=== PATIENT | female | born 1985 | race Caucasian/White ===

== ENCOUNTER 2025-06-25 23:57 | Emergency (ER) | payer OTHER, SELFPAY ==
[2025-06-26 00:04] VITALS: BP 119/69
--- NOTE | 2025-06-26 02:30 | ED.GENMED ---
History of Present Illness
General
Chief Complaint: Breathing Problem
Source: patient
Exam Limitations: none
Time Seen by Provider: 06/26/25 00:30
Nursing documentation reviewed up to this point in time: agreed with
History of Present Illness
History of Present Illness:
see MDM
Past History
Past History
ED Past Medical History: GERD
ED Past Surgical History:
Social History
Tobacco: Smoker
Alcohol: None
Drug: None
Personal: Single
Living: with family
Employment: Employed
Family History
Family History: Other
Review of Systems
Review of Systems
Allergies reviewed?: Yes
All Other Systems: Not applicable
Phy Exam
Physical Exam
Physical Exam:
GENERAL: Alert , in no apparent distress, patient was initially hunched over in the bed because it felt better that way but was able to stand up or sit up
EYE: pupils equal and reactive
NECK: Supple
ENT: o/p clr, mmm.
CARDIAC: Regular rate and rhythm, no tachycardia
LUNGS: Clear breath sounds bilaterally, no acute respiratory distress, no wheezes/rales/rhonchi
ABDOMEN: Soft, flat, nondistended without focal tenderness, no r/g, no cvat, normal bowel sounds
NEUROLOGICAL: Alert and oriented, no focal neuro deficits
SKIN: Warm and dry, skin intact.
MUSCULOSKELETAL: No edema, well perfused. neg robert's sign
PSYCH: Normal and appropriate interaction.
Course
Orders/Labs/Results
Orders:
Orders
06/26/25 00:41
Electrocardiogram (*1) Urgent
Reason for Study: Shortness of Breath
Vital Signs
Initial and Last Documented VS:
Initial Vital Signs
Temp Pulse Resp BP Pulse Ox
36.7 C 84 16 119/69 100
06/26/25 00:04 06/26/25 00:04 06/26/25 00:04 06/26/25 00:04 06/26/25 00:04
Last Documented Vital Signs
Temp Pulse Resp BP Pulse Ox
36.7 C 84 16 119/69 100
06/26/25 00:04 06/26/25 00:04 06/26/25 00:04 06/26/25 00:04 06/26/25 00:04
MDM/Problems Addressed
Differential Diagnosis Includes:
See MDM
MDM/Problems Addressed:
Note:
CHIEF COMPLAINT(S)
Severe pain on the side exacerbated by deep breathing.
HISTORY OF PRESENT ILLNESS
The patient is a 40-year-old female who presents with sudden onset severe pain 1 hour ago while smoking cigarette starting from her right upper back and traveling down the rigth side of her back, described as worsening with deep breath. The pain
improves with a hunched posture but worsens when attempting to stand upright.
The patient denies recent coughing or any illness. She reports using a marijuana vape regularly and smoked cigarettes for an undisclosed duration. She has a history of similar pain post- section, which she associated with trapped gas.
The pain was so severe at one point that she found herself crumpled on the kitchen floor, unable to stand due to the intensity, although it has since subsided somewhat. The patient has not taken any analgesics. The pain began approximately 45
minutes prior to arrival. since being here, she feels much better
she was able to straighten for me and felt better.
The patient additionally reports having traveled by car to [place] in the recent past. There is no personal history of blood clots. She has an intrauterine device (Mirena) in place and no known cardiac history
.
PAST MEDICAL AND SURIGICAL HISTORY
The patient reports having undergone a section in the past.
SOCIAL DETERMINANTS AFFECTING HEALTH
The patient reports regular use of a marijuana vape and smoking cigarettes.
REVIEW OF SYSTEMS
- Respiratory: Pain with deep breathing, sudden onset.
- Gastrointestinal: History of post- section gas pain.
- Cardiovascular: Denies history of chest pain; no known family history of cardiac disease.
- Musculoskeletal: Pain starting from the back and traveling downward, exacerbated by movement.
PHYSICAL EXAM
- General: The patient appears in mild distress due to pain.
- Respiratory: Breath sounds are detectable. Oxygen saturation is noted to be 100%.
Nursing notes reviewed and vital signs reviewed.
PLAN
- Obtain an EKG to rule out cardiac causes given the sudden onset and severity in a smoker.
- Order a chest X-ray to evaluate for potential pneumothorax.
- Evaluate the abdominal region for possible gas bubble or other abdominal causes of referred pain.
DIFFERENTIAL DIAGNOSIS
The Differential Diagnosis includes, in no particular order and is not limited to:
1. Pneumothorax
2. Pulmonary embolism
3. Pneumonia
4. Musculoskeletal strain
5. Referred shoulder pain
6. Gastrointestinal gas pain
7. Rib fracture
8. Kidney stones
9. Gastrointestinal obstruction
10. Cardiac-related pain
40-year-old female, no chronic medical problems, smoker presents with a sudden onset of pain in her right shoulder blade or upper back that kind of radiated down her back and seem to be pleuritic. Patient says she did not feel short of breath but
it hurts to take a deep breath. The pain then resolved from that position and moved to her upper abdomen. She felt better in a hunched position and was at 1 point on the kitchen floor called out to her boyfriend for help who brought her here.
Since being here she feels much better. She was initially hunched over in the bed but was able to sit up straight without difficulty, take deep breaths without pain. She is not tachycardic, hypoxic. She does have a Mirena IUD. She did recently
have a long drive to [place]. There is no family history of blood clots or personal history of blood clots. She has no leg pain or swelling. On exam she can fully take deep breaths, has present breath sounds throughout and no abdominal
tenderness. I discussed doing a screening EKG as well as an x-ray to rule out pneumothorax though with a normal pulse ox and present breath sounds I doubted she had 1. While waiting for these tests the patient ended up passing gas and feels much
better. Patient says she declines all testing. I still offered it, but she refused. She was given return precautions
*Pulse Oximetry
SaO2: 100
Oxygen Mode of Delivery: Room air
Patient hypoxic: no (100)
*Critical Care Note
Total Time (30-74mins, 75-104mins- exclusive of procedures): Not Applicable
ED Attending Note
-
Portions of this chart may have been created with voice recognition software.� Occasional wrong word or��sound alike� substitutions may have occurred due to the inherent limitations of voice recognition software.
Discharge Plan
Departure
Patient Disposition: Home (Routine Discharge)
Date of Disposition: 06/26/25
Time of Disposition: 00:52
Patient with high blood pressure during this ER visit?: No
Condition: Fair
Covid-19: Not Applicable
Discharge Problem:
Gas pain
Instructions: Chest Pain (DC)
Prescriptions:
No Action
#2
1 tab PO DAILY
acetaminophen 325 MG tablet
650 mg PO Q4HPRN PRN (Reason: mild pain) 0RF
ibuprofen 600 MG tablet
600 mg PO Q4HPRN PRN (Reason: cramps) 0RF
Referrals:
Hans Gore DO [Family Provider, Family Practice] - Follow up in 2-3 days
Activity Restrictions/Additional Instructions:
YOUR PAIN IN YOUR BACK/ABDOMEN COULD BE FROM GAS. WE DID OFFER TESTING TO RULE OUT A SPONTANEOUS LUNG COLLAPSE AND A SCREENING EKG BUT YOU FELT MUCH BETTER AND DECLINED
RETURN FOR ANY RECURRENCE OF SYMPTOMS
Interventions
Interventions:
*Risk Screen - Suicide Last Done: 06/26/25 00:04
*General Assessment Last Done: 06/26/25 01:23
*Neglect/Abuse Screening Last Done: 06/26/25 00:04
*ED- Fall Risk Assessment Last Done: 06/26/25 00:04
*ED COVID-19 Vaccine History Last Done: 06/26/25 00:04
*Nursing Disposition Last Done: 06/26/25 01:23
ED- Cardiac Assessment Last Done: 06/26/25 01:22
ED- Pulmonary Assessment Last Done: 06/26/25 01:22
Discharge Date and Time
Discharge Date/Time: 06/26/25 01:23
Print Language: [id number]
== END 2025-06-26 01:23 | disposition home or self-care (01) ==
LOC: EMR 23:57
PROVIDERS: EMERGENCY PHYSICIAN Emergency Medicine; FAMILY PHYSICIAN Family Medicine
DX: R14.1 Gas pain (principal); F17.210 Nicotine dependence, cigarettes, uncomplicated
CPT/HCPCS: 99282